=== PATIENT | female | born 1970 | race Caucasian/White ===

== ENCOUNTER 2021-08-06 17:17 | Emergency (ER) | payer OTHER ==
[~2021-08-06] VITALS: Ht 170.2 cm; Wt 81.6 kg
== END 2021-08-06 20:45 | disposition home or self-care (01) ==
LOC: ER1 17:17
DX: Z23 Encounter for immunization (principal); U07.1 COVID-19; Z90.49 Acquired absence of other specified parts of digestive tract; Z88.5 Allergy status to narcotic agent
CPT/HCPCS: 36600; 71045; 82803; 99283; M0243